=== PATIENT | male | born 1945 | race Caucasian/White ===

== ENCOUNTER → 2018-02-22 | Outpatient (CLI) | payer OTHER | LOC: GIMAGING 15:23 | PROVIDERS: ATTEND Internal Medicine | DX: M19.012 Primary osteoarthritis, left shoulder (principal) | CPT/HCPCS: 73030-PO; G0103 ==

== ENCOUNTER → 2018-03-15 | Outpatient (CLI) | payer OTHER | LOC: GIMAGING 14:46 | PROVIDERS: ATTEND Internal Medicine | DX: M19.011 Primary osteoarthritis, right shoulder (principal) | CPT/HCPCS: 73030-PO ==